=== PATIENT | female | born 1995 | race Two or more races ===

== ENCOUNTER 2022-05-24 18:24 | Inpatient (IN) ==
[2022-05-24] MEDS ORDERED: OXYTOCIN 30 UNITS/500 ML BAG IV PRN (18:52)
[2022-05-24] MEDS ORDERED: PENICILLIN G POTASSIUM 6 MU in DEXTROSE 5% 250 ML IV STA (18:52)
[2022-05-24] MEDS ORDERED: LIDOCAINE 1% LOCAL 20 ML VIAL INFIL PRN (18:52)
[2022-05-24] MEDS: LACTATED RINGER'S 1,000 ML IV PRN ×3 (19:00→23:33)
--- NOTE | 2022-05-24 19:00 | History & Physical Report ---
Date of Service May 24, 2022 Assessment & Plan (1) Active labor: (2) Group beta Strep positive: Plan 27 yo at 39 5/7 wga presents in labor VSS Fetus cat 1 Labor - expectant management GBS+, pcn ordered epidural prn History of Present Illness Chief Complaint: Contractions Primary Care Provider: NO PCP 27 yo at 39 5/7 wga presenting w/ ctx increasing in frequency and intensity. Notes some bloody show discharge but denies LOF, +FM PNI: GBS+ Past MERCHANDISE STOCKER Hx: G1 2013 G2 2014 G3 Hx SAB G4 current denies hx STIs denies hx abnl pap, 09/2021 neg cyto Allergies Allergy/AdvReac Type Severity Reaction Status Date / Time No Known Allergies Allergy Verified 05/22/22 09:55 Home Medications Medication Instructions Recorded Confirmed Type prenat.vits,tiffanie,lft-cuwf-ubiuc 1 tab PO DAILY 10/10/21 05/22/22 History breast pump #1 ea 04/17/22 05/22/22 Rx Patient History Medical History Miscarriage Social History Smoking Status: Never smoker Hx Alcohol Use: No Preferred Language: Slovak Communication Tools: Open Lendingd marital status: marital status details: Kirsten (33) Current Living Situation: Family Current Living Situation Comment: lives with brother and children. current occupation: [employer] student Feels Safe at Home: Yes Physical Exam Genitourinary: OB Exam Abdomen: + vertex and + estimated weight (6) Manual OB Exam: + cervical dilation (4-5), + cervical effacement 70% and + station -2 OB Exam Monitor Tracing: + external FHT monitor used, + external uterine monitor used (q3-4) and + category I (135/mod/-accel/-decel) Results & Data ([facility]) Vital Signs (Past 12 Hours) Vital Signs Temp Pulse Resp BP 05/24/22 18:30 20 05/24/22 18:30 98.2 F 20 05/24/22 18:32 86 106/57 L Laboratory Results OB Labs: Blood Type B Positive 10/18/21 Antibody Screen NEGATIVE 10/18/21 Hemoglobin 10.5 g/dl (12.0-16.0) L 03/20/22 Hematocrit 31.8 % (34.1-44.9) L 03/20/22 Mean Corpuscular Volume 86.2 fL (80.0-100.0) 03/20/22 Platelet Count 256 K/uL (130-400) 03/20/22 Rubella IgG Antibody Immune (Immune) 10/18/21 Rapid Plasma Reagin Nonreactive (Nonreactive) 10/18/21 Hepatitis B Surface Antigen Neg (Neg) 10/18/21 Hepatitis C Antibody Neg (Neg) 10/18/21 HIV (1&2) Ab and P24 Ag, 4th Gener Neg (Neg) 10/18/21 Glucose 1 Hour 50 gm Load 114 mg/dl (70-130) 03/06/22 OB Optional Labs: Chlamydia trachomatis RNA NOT DETECTED (NOT DETECTED) 10/18/21 Neisseria gonorrhoeae RNA NOT DETECTED (NOT DETECTED)B 10/18/21 Thyroid Stimulating Hormone (TSH) 2.121 uIu/ml (0.300-4.500) 11/19/21 Labs Reviewed: cfdna-low risk--mln gbs positive urine Diagnostic Findings post plac Coding Level of Care Code None Diagnoses Active labor Group beta Strep positive B95.1
[2022-05-24 19:22] LABS: Hemoglobin 9.6 g/dl (12.0-16.0); Mean Corpuscular Hemoglobin 25.9 pg (25.0-34.0); Mean Corpuscular Volume 80.9 fL (80.0-100.0); Mean Platelet Volume 11.5 fL (9.4-12.3); Platelet Count 221 K/uL (130-400); RDW Coefficient of Variation 13.5 % (11.5-14.5); RDW Standard Deviation 39.5 fL (36.4-46.3); Red Blood Count 3.71 M/uL (3.93-5.22); White Blood Count 8.52 K/ul (4.8-10.8)
--- NOTE | 2022-05-24 20:07 | Labor Progress Brief Note ---
Date of Service May 24, 2022 Subjective More painful, wants epidural Assessment & Plan (1) Active labor: (2) Group beta Strep positive: Plan 27 yo at 39 5/7 wga presents in labor VSS Fetus cat 1 Labor - pt desired check as more painful, now 5cm and SROM for mec. Pt desires epidural GBS+, pcn ordered desires epidural Admission and Anticipated Discharge Date Admission Date: May 24, 2022 Physical Exam Genitourinary: Manual OB Exam: + cervical dilation 5 cm, + cervical effacement 70%, + station -2 and + amniotic fluid (SROM mod mec) OB Exam Monitor Tracing: + external FHT monitor used, + external uterine monitor used (q4-5) and + category I (135/mod/-accel/-decel) Results & Data ([facility]) Vital Signs (Past 12 Hours) Vital Signs Temp Pulse Resp BP 05/24/22 19:00 18 05/24/22 19:00 98.1 F 18 05/24/22 19:38 88 05/24/22 19:38 106/61 05/24/22 18:30 20 05/24/22 18:30 98.2 F 20 05/24/22 18:32 86 106/57 L Coding Level of Care Code None Diagnoses Active labor Group beta Strep positive B95.1
[2022-05-24] MEDS ORDERED: LIDOCAINE 2%/EPINEPHRINE 1:200,000 20 ML SDV ONE (20:28)
[2022-05-24] MEDS ORDERED: ePHEDrine sulfate 50 MG/ML AMP ONE (20:28)
[2022-05-24] MEDS ORDERED: BUPIVACAINE 0.25% 30 ML VIAL ONE (20:28)
[2022-05-24] MEDS ORDERED: fentaNYL citrate 100 MCG/2 ML VIAL ONE (20:28)
[2022-05-24] MEDS ORDERED: SODIUM CHLORIDE 0.9% INJ 10 ML VIAL ONE (20:28)
[2022-05-24] MEDS ORDERED: fentaNYL 2MCG/ML ROPIVACAINE 1.25MG/ML 100 ML BAG EPI ONE (20:29)
[2022-05-24] MEDS ORDERED: NALOXONE HCL 0.4 MG/1 ML VIAL/CARP IV PRN (20:52)
[2022-05-24] MEDS ORDERED: ePHEDrine sulfate 50 MG/ML AMP IV PRN (20:52)
[2022-05-24] MEDS ORDERED: NALBUPHINE HCL INJ 10 MG/ML AMP IV PRN (20:52)
[2022-05-24] MEDS ORDERED: NALOXONE HCL 1 MG in SODIUM CHLORIDE 0.9% 1000ML 1,000 ML IV PRN (20:52)
[2022-05-24] MEDS ORDERED: ONDANSETRON INJ 2 MG/ML 2 ML VIAL IV PRN (20:52)
[2022-05-24] MEDS ORDERED: diphenhydrAMINE 50 MG/ML VIAL IV PRN (20:52)
[2022-05-24] MEDS ORDERED: PROMETHAZINE HCL 6.25 MG in SODIUM CHLORIDE 0.9% 50 ML IV PRN (20:52)
[2022-05-24] MEDS ORDERED: fentaNYL 2MCG/ML ROPIVACAINE 1.25MG/ML 100 ML BAG EPI PRN (20:52)
--- NOTE | 2022-05-24 20:54 | Anesthesiology Consultation ---
Date of Service May 24, 2022 Assessment & Plan Chart Review Chart Review: Patient NOT seen in Pre Admission Testing and Acceptable Risk for Labor Epidural Consults Requested none ASA ASA2 Proposed Anesthesia Anesthesia Type: Labor Epidural Risk / Benefits Reviewed With: PT / POA / Parent / Guardian, Accepts Plan and Informed Consent Obtained History Allergies Allergy/AdvReac Type Severity Reaction Status Date / Time No Known Allergies Allergy Verified 05/22/22 09:55 Medications Home Medications Medication Instructions Recorded Confirmed Last Taken prenat.vits,tifafnie,rnq-efnd-wynlx 1 tab PO DAILY 10/10/21 05/22/22 11/18/21 breast pump #1 ea 04/17/22 05/22/22 Unknown Active Medications Generic Name Dose Route Start Last Admin Trade Name Freq PRN Reason Stop Dose Admin Lactated Ringer's 1,000 mls @ 125 mls/hr 05/24/22 18:52 05/24/22 19:00 Lr IV 05/26/22 18:51 999 mls/hr .Q8H PRN Administration L&D Protocol Protocol Past Medical History Medical History Miscarriage Exercise / Class Metabolic Activity II 4-5 Yardwork/Stairs/Walk up hill Past Anesthesia History No Hx of Anesthesia Complications and No Family Hx of Anesthesia Complications History of PONV No Hx of PONV and No Hx of Motion Sickness Social History Smoking Status: Never smoker Hx Alcohol Use: No Physical Exam Vital Signs Last Vital Signs Temp 36.7 C 05/24/22 19:00 Pulse 118 H 05/24/22 20:48 Resp 18 05/24/22 19:00 BP 105/61 05/24/22 20:48 Pulse Ox 100 05/24/22 20:47 ENMT Mouth: no dentition abnormality Thyromental Distance: > or= 3.5 Finger Breadths Mallampati Class: II Neck normal visual inspection Respiratory normal respiratory effort Auscultation: lungs clear to auscultation bilaterally Cardiovascular Rate/Rhythm: regular rate and regular rhythm Psychiatric Orientation: alert Testing Laboratory Results 05/24/22 19:15
[2022-05-24] MEDS ORDERED: Patient's HEIGHT &/or WEIGHT Needed SCH (21:00)
[2022-05-24] MEDS ORDERED: PENICILLIN G POTASSIUM 3 MU in DEXTROSE 5% 100 ML IV PRN (21:53)
--- NOTE | 2022-05-24 23:22 | Labor Progress Brief Note ---
Date of Service May 24, 2022 Subjective Comfortable w/ epidural, desires check Assessment & Plan (1) Active labor: (2) Group beta Strep positive: Plan 27 yo at 39 5/7 wga presents in labor VSS Fetus cat 1 Labor - good progression, will straigh cath and peanut ball and recheck in an hour or so GBS+, pcn ordered epidural in place Admission and Anticipated Discharge Date Admission Date: May 24, 2022 Physical Exam Genitourinary: Manual OB Exam: + cervical dilation 9 cm, + cervical effacement 90% and + station + 1 OB Exam Monitor Tracing: + external FHT monitor used, + external uterine monitor used (q3) and + category I (140/mod/-accel/-decel) Results & Data ([facility]) Vital Signs (Past 12 Hours) Vital Signs Temp Pulse Resp BP Pulse Ox 05/24/22 20:14 98.1 F 18 98 05/24/22 23:19 96 H 05/24/22 23:19 115/64 05/24/22 23:17 98 05/24/22 23:17 91 H 05/24/22 23:12 100 05/24/22 23:12 87 05/24/22 23:00 18 05/24/22 23:00 18 05/24/22 23:07 98 05/24/22 23:07 79 05/24/22 23:04 88 05/24/22 23:04 108/62 05/24/22 23:02 98 05/24/22 23:02 86 05/24/22 22:57 99 05/24/22 22:57 84 05/24/22 22:52 98 05/24/22 22:52 87 05/24/22 22:49 78 05/24/22 22:49 117/69 05/24/22 22:47 96 05/24/22 22:47 90 05/24/22 22:30 18 05/24/22 22:30 18 05/24/22 22:42 97 05/24/22 22:42 77 05/24/22 22:37 98 05/24/22 22:37 74 05/24/22 22:34 75 05/24/22 22:34 116/65 05/24/22 22:32 98 05/24/22 22:32 78 09/28/22 22:27 98 05/24/22 22:27 91 H 05/24/22 22:22 97 05/24/22 22:22 117 H 05/24/22 22:17 97 05/24/22 22:17 97 H 05/24/22 22:12 97 05/24/22 22:12 122 H 05/24/22 22:07 99 05/24/22 22:07 100 H 05/24/22 22:06 118 H 05/24/22 22:06 127/65 05/24/22 22:02 97 05/24/22 22:02 112 H 05/24/22 21:57 99 05/24/22 21:57 124 H 05/24/22 21:52 97 05/24/22 21:52 88 05/24/22 21:50 100 H 05/24/22 21:50 120/72 05/24/22 21:47 99 05/24/22 21:47 86 05/24/22 21:42 97 05/24/22 21:42 95 H 05/24/22 21:30 18 05/24/22 21:30 18 05/24/22 21:37 98 05/24/22 21:37 126 H 05/24/22 21:35 112 H 05/24/22 21:35 129/64 05/24/22 21:00 20 05/24/22 21:00 97.9 F 20 05/24/22 21:32 100 05/24/22 21:32 136 H 05/24/22 21:27 98 05/24/22 21:27 96 H 05/24/22 21:22 98 05/24/22 21:22 105 H 05/24/22 21:21 141 H 05/24/22 21:21 169/137 H 05/24/22 21:17 98 05/24/22 21:17 108 H 05/24/22 21:12 98 05/24/22 21:12 114 H 05/24/22 21:07 98 05/24/22 21:07 91 H 05/24/22 21:02 98 05/24/22 21:02 110 H 05/24/22 20:57 96 05/24/22 20:57 114 H 05/24/22 20:55 126 H 05/24/22 20:55 106/59 L 05/24/22 20:52 99 05/24/22 20:52 128 H 05/24/22 20:48 118 H 05/24/22 20:48 105/61 05/24/22 20:47 100 05/24/22 20:47 129 H 05/24/22 20:46 101 H 05/24/22 20:46 100/54 L 05/24/22 20:42 100 05/24/22 20:42 113 H 05/24/22 20:43 115 H 05/24/22 20:43 104/68 05/24/22 20:37 100 05/24/22 20:37 117 H 05/24/22 20:32 100 05/24/22 20:32 127 H 05/24/22 19:00 18 05/24/22 19:00 98.1 F 18 05/24/22 19:38 88 05/24/22 19:38 106/61 05/24/22 18:30 20 05/24/22 18:30 98.2 F 20 05/24/22 18:32 86 106/57 L Coding Level of Care Code None Diagnoses Active labor Group beta Strep positive B95.1
--- NOTE | 2022-05-25 00:07 | Delivery Summary ---
Vaginal Delivery Summary Date of Service May 25, [address] [facility] PREOPERATIVE DIAGNOSIS: 1. Single intrauterine at 39 5/7 wga 2. Labor 3. GBS+ POSTOPERATIVE DIAGNOSIS: 1. Single intrauterine at 39 5/7 wga 2. Labor 3. GBS+ 4. Delivered PROCEDURE: 1. Normal spontaneous vaginal delivery. SURGEON: Aster Scott MD ANESTHESIA: Epidural. ESTIMATED BLOOD LOSS: 300 mL FLUIDS: Continuous LR. URINE OUTPUT: None. COMPLICATIONS: None. CONDITION: Stable. INDICATIONS: 27 yo at 39 4/7 wga presented this evening with contractions increasing in frequency and intensity and found to be 5cm on arrival. Penicillin was started for GBS+ status. She had spontaneous rupture of membranes and received an epidural for pain control. She progressed to complete and desired to push. FINDINGS: A viable female infant, weight pending with Apgars of 8 and 9 at 1 and 5 minutes respectively. SPECIMEN: Cord blood OPERATIVE REPORT: The patient progressed to 10 cm, 100% effaced and +2 station, pushed over intact perineum with anesthesia to deliver a viable female infant, weight and Apgars as above. Head of delivered in JOSS position. No nuchal cord was present. Body and shoulders were delivered without difficulty. was delivered to maternal abdomen and nursing staff. Delayed cord clamping was performed for 60 seconds. Cord was clamped and cut. Cord blood was obtained. Placenta delivered spontaneously intact with 3-vessel cord. IV oxytocin and fundal massage were given for excellent hemostasis. Vagina, cervix, perineum, and placenta were inspected. Small hemostatic abrasions were noted on right labia and 7 o'clock at the introitus that did not need repaired. Sponge and needle counts correct x2. No sponges were left behind. Mother and stable in immediate period. [facility] Vaginal Delivery Charge Vaginal Delivery Codes: 12802 global code for the antepartum, delivery, and post- Delivery Type Details: [facility]
[2022-05-25] MEDS ORDERED: ACETAMINOPHEN 325 MG TAB PO PRN (00:46)
[2022-05-25] MEDS ORDERED: bisacodyL 10 MG SUPP PR PRN (00:46)
[2022-05-25] MEDS ORDERED: HYDROCORTISONE ACETATE 25 MG SUPP PR PRN (00:46)
[2022-05-25] MEDS ORDERED: BENZOCAINE 20% AER SPR 82.5 GM CAN EXT PRN (00:46)
[2022-05-25] MEDS ORDERED: OXYTOCIN 30 UNITS/500 ML BAG IV PRN (00:46)
[2022-05-25] MEDS ORDERED: DIPHTHERIA/TETANUS/PERTUSSIS 0.5 ML SYR/VIAL IM ONE (00:46)
--- NOTE | 2022-05-25 05:20 | Anesthesia Procedure Note ---
Date of Service May 25, 2022 Anesthesia Post Epidural Note Vital Signs Vital Signs: Temp Pulse Resp BP Pulse Ox O2 Del Method 98.1 F 83 18 117/55 L 99 05/25/22 03:00 05/25/22 03:00 05/25/22 03:00 05/25/22 03:00 05/24/22 23:52 05/25/22 03:00 Notes Mental Status: alert / awake / arousable and participated in evaluation Nausea / Vomiting: adequately controlled Pain: adequately controlled Airway Patency, RR, SpO2: stable & adequate BP & HR: stable & adequate Hydration State: stable & adequate Neuraxial Anesthesia: was administered and sensory block is resolving Anesthetic Complications: no major complications apparent and Pt Satisfied with anesthetic care Epidural: Removed without complications and With tip intact
--- NOTE | 2022-05-25 05:24 | Obstetrical Progress Note ---
Date of Service May 25, 2022 Assessment & Plan (1) care following vaginal delivery: (2) Group beta Strep positive: Plan - Overall, feeling well and eating well today - Infant feeding going well without concern - Urinating and passing gas appropriately - Ambulating well to bathroom and back - Pain controlled w/o medication since epidural, available on patient's request - Mild anterior calf pain w/o deep calf pain, Paul's sign negative - likely 2/2 lower extremity edema, encouraged ambulation today and reassured pt. - Hgb 05/24 9.6 - Routine PP care progressing well - Anticipate discharge tomorrow Admission and Anticipated Discharge Date Admission Date: May 24, 2022 Supervising Physician Co-Signing Physician Notes Resident Physician Supervision Note: I interviewed and examined the patient. Discussed with Dr. Durham and agree with findings and plan as documented in the note. Any exceptions or clarifications are listed here: PP1 s/p , doing well. VSS, exam benign and wnl. Continue routine pp care Documented By: Aster Scott MD Subjective Today 05/25: Patient is a 27 y/o female who is PPD #1 following delivery at 39w5d. Delivery was complicated by GBS+ status, but patient received penicillin during delivery. - Ambulation - to bathroom w/o difficulty - Voiding/Grande - independent voids, no dysuria or pressure - Gas/Stool - passing gas, no bowel movement - Diet - regular, no nausea or emesis - Lochia - unchanged from delivery, moderate amount - Infant Feeding Type - breast feeding - Pain Level - 4/10, no pain control since epidural Review of Systems - Denies fever, chills, sweats - Denies shortness of breath, difficulty breathing, chest pain, palpitations, chest pressure. - Denies breast pain. - Denies dysuria. - Denies headache or changes in vision. - Pt endorsed anterior condon pain that had been present througout and has not yet resolved Physical Exam Physical Exam: General: Alert, oriented. No acute distress. Cardiac: RRR, normal S1/S2, no murmurs/rubs/gallops. Respiratory: Non-labored, CTAB, no wheezes/rales/rhonchi. Symmetric chest rise. Abdomen: Soft, nontender, nondistended. Bowel sounds present. Uterus: Uterine fundus firm, palpable 1 cm below umbilicus. Lower Extremities: 1+ lower extremity edema. Mild TTP of anterior condon. No deep calf pain. Paul's negative bilaterally. Results & Data ([facility]) Vital Signs (Past 12 Hours) Vital Signs Temp Pulse Pulse Resp BP BP Pulse Ox 05/25/22 03:00 36.7 C 83 18 117/55 L 05/25/22 00:30 18 05/25/22 00:00 36.8 C 18 05/24/22 20:14 36.7 C 18 98 05/25/22 01:58 83 117/55 L 05/25/22 01:44 78 131/76 05/25/22 01:29 58 L 134/73 05/25/22 01:14 70 122/64 05/25/22 00:59 71 117/58 L 05/25/22 00:45 76 115/58 L 05/25/22 00:29 73 118/71 05/25/22 00:14 86 113/60 05/24/22 23:59 99 H 05/24/22 23:59 111/55 L 05/24/22 23:52 99 05/24/22 23:52 96 H 05/24/22 23:49 106 H 05/24/22 23:49 121/64 05/24/22 23:47 99 05/24/22 23:47 133 H 05/24/22 23:42 98 05/24/22 23:42 97 H 05/24/22 23:37 100 05/24/22 23:37 113 H 05/24/22 23:36 111 H 05/24/22 23:36 120/67 05/24/22 23:32 100 05/24/22 23:32 93 H 05/24/22 23:27 100 05/24/22 23:27 98 H 05/24/22 23:22 99 05/24/22 23:22 89 05/24/22 23:19 96 H 05/24/22 23:19 115/64 05/24/22 23:17 98 05/24/22 23:17 91 H 05/24/22 23:12 100 05/24/22 23:12 87 05/24/22 23:00 18 05/24/22 23:00 18 05/24/22 23:07 98 05/24/22 23:07 79 05/24/22 23:04 88 05/24/22 23:04 108/62 05/24/22 23:02 98 05/24/22 23:02 86 05/24/22 22:57 99 05/24/22 22:57 84 05/24/22 22:52 98 05/24/22 22:52 87 05/24/22 22:49 78 05/24/22 22:49 117/69 05/24/22 22:47 96 05/24/22 22:47 90 05/24/22 22:30 18 05/24/22 22:30 18 05/24/22 22:42 97 05/24/22 22:42 77 05/24/22 22:37 98 05/24/22 22:37 74 05/24/22 22:34 75 05/24/22 22:34 116/65 05/24/22 22:32 98 05/24/22 22:32 78 05/24/22 22:27 98 05/24/22 22:27 91 H 05/24/22 22:22 97 05/24/22 22:22 117 H 05/24/22 22:17 97 05/24/22 22:17 97 H 05/24/22 22:12 97 05/24/22 22:12 122 H 05/24/22 22:07 99 05/24/22 22:07 100 H 05/24/22 22:06 118 H 05/24/22 22:06 127/65 05/24/22 22:02 97 05/24/22 22:02 112 H 05/24/22 21:57 99 05/24/22 21:57 124 H 05/24/22 21:52 97 05/24/22 21:52 88 05/24/22 21:50 100 H 05/24/22 21:50 120/72 05/24/22 21:47 99 05/24/22 21:47 86 05/24/22 21:42 97 05/24/22 21:42 95 H 05/24/22 21:30 18 05/24/22 21:30 18 05/24/22 21:37 98 05/24/22 21:37 126 H 05/24/22 21:35 112 H 05/24/22 21:35 129/64 05/24/22 21:00 20 05/24/22 21:00 36.6 C 20 05/24/22 21:32 100 05/24/22 21:32 136 H 05/24/22 21:27 98 05/24/22 21:27 96 H 05/24/22 21:22 98 05/24/22 21:22 105 H 05/24/22 21:21 141 H 05/24/22 21:21 169/137 H 05/24/22 21:17 98 05/24/22 21:17 108 H 05/24/22 21:12 98 05/24/22 21:12 114 H 05/24/22 21:07 98 05/24/22 21:07 91 H 05/24/22 21:02 98 05/24/22 21:02 110 H 05/24/22 20:57 96 05/24/22 20:57 114 H 05/24/22 20:55 126 H 05/24/22 20:55 106/59 L 05/24/22 20:52 99 05/24/22 20:52 128 H 05/24/22 20:48 118 H 05/24/22 20:48 105/61 05/24/22 20:47 100 05/24/22 20:47 129 H 05/24/22 20:46 101 H 05/24/22 20:46 100/54 L 05/24/22 20:42 100 05/24/22 20:42 113 H 05/24/22 20:43 115 H 05/24/22 20:43 104/68 05/24/22 20:37 100 05/24/22 20:37 117 H 05/24/22 20:32 100 05/24/22 20:32 127 H 05/24/22 19:00 18 05/24/22 19:00 36.7 C 18 05/24/22 19:38 88 05/24/22 19:38 106/61 05/24/22 18:30 20 05/24/22 18:30 36.8 C 20 05/24/22 18:32 86 106/57 L O2 Del Method 05/25/22 03:00 Room Air 05/25/22 00:30 05/25/22 00:00 05/24/22 20:14 05/25/22 01:58 05/25/22 01:44 05/25/22 01:29 05/25/22 01:14 05/25/22 00:59 05/25/22 00:45 05/25/22 00:29 05/25/22 00:14 05/24/22 23:59 05/24/22 23:59 05/24/22 23:52 05/24/22 23:52 05/24/22 23:49 05/24/22 23:49 05/24/22 23:47 05/24/22 23:47 05/24/22 23:42 05/24/22 23:42 05/24/22 23:37 05/24/22 23:37 05/24/22 23:36 05/24/22 23:36 05/24/22 23:32 05/24/22 23:32 05/24/22 23:27 05/24/22 23:27 05/24/22 23:22 05/24/22 23:22 05/24/22 23:19 05/24/22 23:19 05/24/22 23:17 05/24/22 23:17 05/24/22 23:12 05/24/22 23:12 05/24/22 23:00 05/24/22 23:00 05/24/22 23:07 05/24/22 23:07 05/24/22 23:04 05/24/22 23:04 05/24/22 23:02 05/24/22 23:02 05/24/22 22:57 05/24/22 22:57 05/24/22 22:52 05/24/22 22:52 05/24/22 22:49 05/24/22 22:49 05/24/22 22:47 05/24/22 22:47 05/24/22 22:30 05/24/22 22:30 05/24/22 22:42 05/24/22 22:42 05/24/22 22:37 05/24/22 22:37 05/24/22 22:34 05/24/22 22:34 05/24/22 22:32 05/24/22 22:32 05/24/22 22:27 05/24/22 22:27 05/24/22 22:22 05/24/22 22:22 05/24/22 22:17 05/24/22 22:17 05/24/22 22:12 05/24/22 22:12 05/24/22 22:07 05/24/22 22:07 05/24/22 22:06 05/24/22 22:06 05/24/22 22:02 05/24/22 22:02 05/24/22 21:57 05/24/22 21:57 05/24/22 21:52 05/24/22 21:52 05/24/22 21:50 05/24/22 21:50 05/24/22 21:47 05/24/22 21:47 05/24/22 21:42 05/24/22 21:42 05/24/22 21:30 05/24/22 21:30 05/24/22 21:37 05/24/22 21:37 05/24/22 21:35 05/24/22 21:35 05/24/22 21:00 05/24/22 21:00 05/24/22 21:32 05/24/22 21:32 05/24/22 21:27 05/24/22 21:27 05/24/22 21:22 05/24/22 21:22 05/24/22 21:21 05/24/22 21:21 05/24/22 21:17 05/24/22 21:17 05/24/22 21:12 05/24/22 21:12 05/24/22 21:07 05/24/22 21:07 05/24/22 21:02 05/24/22 21:02 05/24/22 20:57 05/24/22 20:57 05/24/22 20:55 05/24/22 20:55 05/24/22 20:52 05/24/22 20:52 05/24/22 20:48 05/24/22 20:48 05/24/22 20:47 05/24/22 20:47 05/24/22 20:46 05/24/22 20:46 05/24/22 20:42 05/24/22 20:42 05/24/22 20:43 05/24/22 20:43 05/24/22 20:37 05/24/22 20:37 05/24/22 20:32 05/24/22 20:32 05/24/22 19:00 05/24/22 19:00 05/24/22 19:38 05/24/22 19:38 05/24/22 18:30 05/24/22 18:30 05/24/22 18:32 Resident Activity Tracking Resident Involvement: Resident Care Provided Care Provided: OB Delivery
[2022-05-25] MEDS: FERROUS SULFATE 325 MG TAB PO SCH (08:01)
[2022-05-25] MEDS: DOCUSATE SODIUM 100 MG CAP PO SCH ×2 (08:01→20:45)
[2022-05-25] MEDS: PRENATAL VITAMIN 1 TAB PO SCH (08:01)
[2022-05-25] MEDS: IBUPROFEN 600 MG TAB PO PRN (11:58)
[2022-05-25] MEDS ORDERED: bisacodyL 5 MG TABEC PO SCH (20:00)
[2022-05-26] MEDS: IBUPROFEN 600 MG TAB PO PRN (06:48)
--- NOTE | 2022-05-26 06:59 | Obstetrical Progress Note ---
Date of Service May 26, 2022 Assessment & Plan (1) care following vaginal delivery: (2) Group beta Strep positive: Plan - Overall, feeling well and eating well today - Infant feeding going well without concern - Urinating and passing gas appropriately - Ambulating well around room - Pain controlled w/ Ibuprofen - Hgb 05/24 9.6 - Routine PP care progressing well - Anticipate discharge today Admission and Anticipated Discharge Date Admission Date: May 24, 2022 Supervising Physician Co-Signing Physician Notes Resident Physician Supervision Note: I was present with Dr. Durham during the history and exam. I discussed the case with the resident and agree with the findings and plan as documented in the note. Any exceptions or clarifications are listed here: stable, ready for dc home. some pain helped with motrin. ff 1 down nt, nt calves, ppd#2 s/p . routine instructions reviewed. f/u 6wks pp. Documented By: Ignacia Foster MD, FACOG Subjective Today 05/26: Patient is a 27 y/o female who is PPD #2 following delivery at 39w5d. Delivery was complicated by GBS+ status, but patient received penicillin during delivery. - Ambulation - around room w/o difficulty - Voiding/Grande - independent voids, no dysuria or pressure - Gas/Stool - passing gas, no bowel movement - Diet - regular, no nausea or emesis - Lochia - decreasing, mild-moderate amount - Infant Feeding Type - breast feeding no concerns - Pain Level - 4/10, w/ Ibuprofen Review of Systems - Denies fever, chills, sweats - Denies shortness of breath, difficulty breathing, chest pain, palpitations, chest pressure. - Denies breast pain. - Denies dysuria. - Denies headache or changes in vision. Physical Exam Physical Exam: General: Alert, oriented. No acute distress. Cardiac: RRR, normal S1/S2, no murmurs/rubs/gallops. Respiratory: Non-labored, CTAB, no wheezes/rales/rhonchi. Symmetric chest rise. Abdomen: Soft, nontender, nondistended. Bowel sounds present. Uterus: Uterine fundus firm, palpable 2 cm below umbilicus. Lower Extremities: No lower extremity edema. No deep calf pain. Paul's negative bilaterally. Results & Data ([facility]) Vital Signs (Past 12 Hours) Vital Signs Temp Pulse Resp BP Pulse Ox O2 Del Method 05/25/22 23:15 36.8 C 77 18 100/67 99 Room Air 05/25/22 19:18 36.7 C 68 18 102/70 98 Room Air Resident Activity Tracking Resident Involvement: Resident Care Provided Care Provided: OB Delivery
[2022-05-26] MEDS: DOCUSATE SODIUM 100 MG CAP PO SCH (08:46)
[2022-05-26] MEDS: PRENATAL VITAMIN 1 TAB PO SCH (08:47)
[2022-05-26] MEDS: FERROUS SULFATE 325 MG TAB PO SCH (08:47)
== END 2022-05-26 15:18 | disposition home or self-care (01) | DRG 807 ==
LOC: OPB 18:24 → 4S1 18:26 → 4E2 05-25 02:00